=== PATIENT | male | born 1980 | race Two or more races ===

== ENCOUNTER 2019-03-11 13:40 | Outpatient (CLI) | payer OTHER ==
[~2019-03-11 13:40] MED LIST: CRESTOR10 MG; CRESTOR20 MG; DICY20TA PO; INDERAL LA120 MG; INDERAL LA80 MG; KETO10TA2 PO; ORPH100T PO
== END 2019-03-11 15:00 | disposition home or self-care (01) ==
LOC: LAB 13:40
DX: M54.2 Cervicalgia (principal); J11.1 Influenza due to unidentified influenza virus with other respiratory manifestations

== ENCOUNTER 2022-04-29 16:14 | Emergency (ER) | payer OTHER ==
[~2022-04-29] VITALS: Ht 170.2 cm; Wt 74.4 kg
== END 2022-04-29 21:05 | disposition home or self-care (01) ==
LOC: ER 16:14
DX: J03.90 Acute tonsillitis, unspecified (principal); Z20.822 Contact with and (suspected) exposure to COVID-19

== ENCOUNTER 2022-05-06 11:52 | Emergency (ER) | payer OTHER ==
[~2022-05-06] VITALS: Ht 170.2 cm; Wt 73.5 kg
== END 2022-05-06 15:41 | disposition home or self-care (01) ==
LOC: ER 11:52
DX: R07.0 Pain in throat (principal)

== ENCOUNTER 2022-05-06 16:27 | Outpatient (CLI) | payer OTHER | END 2022-05-06 16:34 | disposition home or self-care (01) | LOC: LAB 16:27 | PROVIDERS: ATTEND General Practice | DX: R05.8 Other specified cough (principal); R06.02 Shortness of breath; R07.0 Pain in throat ==